=== PATIENT | female | born 1990 | race Two or more races ===

== ENCOUNTER 2020-06-25 07:31 | Day surgery (SDC) | payer OTHER ==
[~2020-06-25 07:31] MED LIST: FOLIC A PO; ZOFRAN; ZOFRAN8 MG PO; [UNRECOGNIZED DRUG - OTHER] PO
== END 2020-06-25 22:40 | disposition home or self-care (01) ==
LOC: CIR.AMB 07:31
PROVIDERS: ATTEND Obstetrics & Gynecology
DX: O34.31 Maternal care for cervical incompetence, first trimester (principal); Z20.828 Contact with and (suspected) exposure to other viral communicable diseases

== ENCOUNTER 2020-07-28 18:18 | Inpatient (IN) | payer OTHER ==
[~2020-07-28] VITALS: Ht 147.3 cm; Wt 59.4 kg
[2020-07-28] MEDS ORDERED: DICLEGIS DR 101 EACH PO (18:37)
== END 2020-08-07 10:34 | DRG 805 ==
LOC: LDR 18:18 → OB/GYN 08-06 16:35
PROVIDERS: ADMIT Obstetrics & Gynecology; ATTEND Obstetrics & Gynecology
PROC: 4A1HXFZ Monitoring of Products of Conception, Cardiac Rhythm, External Approach (ICD-10-PCS; 2020-07-28)
PROC: BY49ZZZ Ultrasonography of First Trimester, Single Fetus (ICD-10-PCS; 2020-07-29)
PROC: 10E0XZZ Delivery of Products of Conception, External Approach (ICD-10-PCS; principal; 2020-08-06)
PROC: 3E0P7VZ Introduction of Hormone into Female Reproductive, Via Natural or Artificial Opening (ICD-10-PCS; 2020-08-06)
DX: O42 Premature rupture of membranes (principal); O41.1210 Chorioamnionitis, first trimester, not applicable or unspecified; Z37.1 Single stillbirth; O36.4XX0 Maternal care for intrauterine death, not applicable or unspecified; Z3A.16 16 weeks gestation of pregnancy; Z20.822 Contact with and (suspected) exposure to COVID-19